=== PATIENT | female | born 1990 | race Caucasian/White ===

== ENCOUNTER 2020-07-10 13:47 | Emergency (ER) | payer MEDICAID, SELFPAY ==
--- NOTE | 2020-07-10 13:51 | XR_ITS ---
WS: [id number] EXAM: LEFT FOOT: 3 VIEWS DATE OF EXAMINATION: 07/10/2020, 1504 hours COMPARISON: None. HISTORY: 29 years old with foot and ankle injury. Complaining of pain. FINDINGS: Bone density is normal in appearance. No fracture, lytic or blastic process is seen. No soft tissue a bnormality noted. XR/XR foot LT min 3V* [id number] IMPRESSION: Negative.
[2020-07-10 14:04] VITALS: BP 119/82; PULSE 88; RESP 16; TEMP 37.2; O2SAT 97; BMI 37.5
--- NOTE | 2020-07-10 14:35 | XR_ITS ---
WS: [id number] EXAM: LEFT ANKLE: 3 VIEWS DATE OF EXAMINATION: 07/10/2020, 1503 hours COMPARISON: None. HISTORY: Patient is 29 years old with foot and ankle injury. Complaining of pain. FINDINGS: Bone density is normal in appearance. Ankle mortise is symmetrical. There appears to be a minute chip of bone off the inferior aspect of the fibula suggesting a small avulsion injury. Otherwise no fract ure is seen. No dislocation. No extensive soft tissue injury identified. XR/XR ankle LT min 3V* [id number] IMPRESSION: No large fracture seen. Suspected tiny bony avulsion off the inferior aspect of the fibula suggesting a ligamentous avulsion injury.
--- NOTE | 2020-07-10 14:36 | ED_ITS ---
HPI - Extremity Problem General: Chief complaint: Extremity Injury, Lower Stated complaint: left foot injury Time Seen by Provider: 07/10/20 14:28 Source: patient Mode of arrival: ambulatory Limitations: no limitations History of Present Illness: HPI Narrative: Sera is a 29-year-old female who comes in complaining of left foot and ankle pain. She was working with a horse when the horse ended up stepping down on her foot. She has abrasions noted to the top. She is she has pain diffusely throughout her foot and is unable to bear weight secondary to pain. Describes pain as severe. She denies any other injuries or complaints. She denies any numbness or weakness in her foot. Review of Systems General: Reports: 10 or more systems reviewed and unremarkable except in HPI and below PFSH ED PFSH: Social History (Updated 07/10/20 @ 14:09 by Elias Kidd RN) Alcohol intake: never Substance/Drug Use: never Female Reproductive History: Date of last menstrual period: 07/08/20 Physical Exam Const: COMMON NORMALS: no acute distress, patient oriented x3, no limitations, healthy appearing and well nourished GENERAL APPEARANCE: cooperative, well kempt and well developed HENMT: COMMON NORMALS: normocephalic, atraumatic, external ears normal, EAC's normal and Normal external nose present HEAD & SCALP: normal to inspection, normocephalic and atraumatic FACE & SINUS: normal facial exam and face symmetric NOSE: Normal external nose present and Normal nares present EXTERNAL EAR: Yes external ears normal EXTERNAL AUDITORY CANAL: EAC's normal MOUTH: Normal oral and palatal mucosa present, lip normal and tongue normal Eye: COMMON NORMALS: Equal, round and reactive pupils present and conjunctivae normal GENERAL EYE: appearance normal, both eyes and all related structures ALIGNMENT: Yes alignment normal PERIORBITAL: periorbital findings normal EYELID: eyelids normal CONJUNCTIVA: Yes conjunctivae normal SCLERA: sclerae normal PUPIL: Yes Equal, round and reactive pupils present Neck/C-Spine: COMMON NORMALS: full ROM, no lymphadenopathy, supple, no meningeal signs and no JVD GENERAL: Yes normal visual inspection and Yes trachea midline Chest: COMMONS NORMALS: normal inspection of the chest and normal palpation of entire chest wall Resp: COMMON NORMALS: normal respiratory effort, No retractions, No use of accessory muscles and clear to auscultation bilaterally EFFORT & INSPECTION: Yes able to speak in complete sentences and Yes symmetric chest movement AUSCULTATION: clear to auscultation bilaterally, no crackles, no rales, no rhonchi and no wheezes Cardio: COMMON NORMALS: no JVD, regular rate, regular rhythm, S1 normal heart sound present and S2 normal heart sound present RATE: regular rate RHYTHM: regular rhythm HEART SOUNDS: S1 normal heart sound present, S2 normal heart sound present, no click, no gallops, no murmurs, no rubs and abnormal split S2 GI: COMMON NORMALS: Soft to palpation and No hepatosplenomegaly present PALPATION: Yes Soft to palpation, No Tenderness to palpation present (GI), No Guarding due to palpation present (GI), No Rigid due to palpation, Yes No hepatosplenomegaly present, No Hernia present, No Palpable mass present and No Pulsatile mass present : COMMON NORMALS: Yes no CVA tenderness BLADDER/KIDNEY EXAM: Yes no CVA t enderness EXTERNAL FEMALE EXAM: No Hernia present Back/Pelvis: COMMON NORMALS: no CVA tenderness, thoracic and lumbar spine normal to inspection, no thoracic nor lumbar tenderness and thoraco-lumbar ROM normal Extremity: COMMON NORMALS: capillary refill normal, no joint enlargement, no clubbing, cyanosis or edema and no calf tenderness NARRATIVE EXTREMITY EXAM: Abrasion noted to the top of foot with tenderness to palpation. Tenderness to palpation of the foot and ankle. No gross deformity noted. Foot and toes are neurovascularly intact. Neuro: COMMON NORMALS: patient oriented x3, CN's II-XII intact bilaterally, moves all extremities, no focal motor deficits and no sensory deficits noted MENINGEAL SIGNS: Yes no meningeal signs SPEECH: speech normal Psych: COMMON NORMALS: mental status grossly normal, Normal thought process present, cooperative, normal affect, speech normal and activity/motor behavior normal APPEARANCE: Yes well kempt SPEECH: Yes normal speech THOUGHT PROCESS: Normal thought process present Skin: COMMON NORMALS: no rashes or lesions noted, turgor normal, no jaundice, no petechiae and no mottling GENERAL SKIN EXAM: no rashes or lesions noted and turgor normal Course Vital Signs: Vital signs: Vital Signs Temperature 98.9 F 07/10/20 14:04 Pulse Rate 84 07/10/20 14:41 Respiratory Rate 18 07/10/20 14:41 Blood Pressure 116/75 07/10/20 14:41 Pulse Oximetry 98 07/10/20 14:41 MDM - Extremity (Nontraumatic) MDM Narrative: Medical decision making narrative: Patient appears to have a small avulsion fracture present on her left ankle/fibula. I will go ahead and discharge her home to follow-up with Dr. Ryan. Place her on crutches make her nonweightbearing. She understands return if her symptoms worsen or change. Imaging Data^: Left Ankle: Attestation: I personally reviewed and interpreted this imaging study as follows: My impression: Possible avulsion fracture to the left fibula Left Foot: Attestation: I personally reviewed and interpreted this imaging study as follows: My impression: No acute fractures dislocations Discharge Plan Discharge Patient Disposition: Home Clinical Impression: Ankle fracture Qualifiers: Encounter type: initial encounter Fracture type: closed Laterality: left Qualified Code(s): S82.892A - Other fracture of left lower leg, initial encounter for closed fracture Condition: Stable Prescriptions: [place] 5-325 mg tablet 1 tab PO Q6H PRN (Reason: pain) 5 Days Qty: 16 RF: 0 Discharge Orders: Discharge Order (Routine); Ordered 07/10/20 Ordered By: Marta Suresh Referrals: Jerry Ryan MD [Physician] - 1-3 days Wilburn,JOSE L Rudolph [Primary Care Provider] - Discharge Diet: Usual diet Discharge Activity: Limit activity as instructed and Use walker/crutches as instructed Patient Instructions: Ankle Fracture (ED) Activity Restrictions/Additional Instructions: Please return to the ER immediately for any of the signs or symptoms listed on your discharge instruction sheets, worsening/changing of your symptoms, you are not getting better as quickly as expected, or for ANY other cause or concerns. Use your splint and use your crutches at all times until seen and instructed further by Dr. Ryan. Please return to the ER immediately for increased pain, foot numbness or weakness, or for any other cause for concern. Coding Level of Care Code ED Plastic And Reconstructive Surgeon for [facility] Exam Comprehensive
[2020-07-10 14:41] VITALS: BP 116/75; PULSE 84; RESP 18; O2SAT 98
[2020-07-10] MEDS: HYDROcodone-acetaminophen 5-325 mg Tablet 1 TAB PO (15:36)
[2020-07-10 16:26] VITALS: BP 140/91; PULSE 80; RESP 20; TEMP 37.2; O2SAT 98
[2020-07-10 16:28] VITALS: BP 140/91; PULSE 80; RESP 18; TEMP 36.6; O2SAT 98
== END 2020-07-10 16:30 | disposition home or self-care (01) ==
PROVIDERS: Emergency Provider Emergency Medicine; PCP Nurse Practitioner Family
DX: S82.892A Other fracture of left lower leg, initial encounter for closed fracture (principal); W55.19XA Other contact with horse, initial encounter
CPT/HCPCS: 12345; 29515; 73610; 73630; 99281; 99283; E0114

== ENCOUNTER → 2020-07-13 10:33 | Outpatient (BNVA) | payer MEDICAID, SELFPAY | PROVIDERS: PCP Nurse Practitioner Family; Referring Provider Emergency Medicine; Visit Provider Podiatrist Foot & Ankle Surgery | DX: M25.572 Pain in left ankle and joints of left foot (principal) | CPT/HCPCS: 73610; 73620 ==

== ENCOUNTER 2020-07-13 11:48 | Outpatient (CLI) | payer MEDICAID, SELFPAY | END 2020-07-13 11:49 | disposition home or self-care (01) | LOC: SPT 11:49 | PROVIDERS: PCP Nurse Practitioner Family; Visit Provider Podiatrist Foot & Ankle Surgery | DX: Z46.89 Encounter for fitting and adjustment of other specified devices (principal); S82.832D Other fracture of upper and lower end of left fibula, subsequent encounter for closed fracture with routine healing; S90.32XD Contusion of left foot, subsequent encounter; X58.XXXD Exposure to other specified factors, subsequent encounter | CPT/HCPCS: 97760; L4361 ==

== ENCOUNTER 2025-06-12 17:29 | Emergency (ER) | payer OTHER, SELFPAY ==
[2025-06-12 17:38] VITALS: BP 140/89; PULSE 70; RESP 16; TEMP 36.7; O2SAT 100
--- NOTE | 2025-06-12 17:42 | W.ED.LOWEXIN ---
HPI - Extremity Injury (Lower) General: Chief Complaint: Extremity Injury, Lower Stated Complaint: LT leg painful Time Seen by Provider: 06/12/25 17:42 Source: patient Mode of arrival: ambulatory Limitations: no limitations History of Present Illness: Patient is a ED today for an evaluation of left ankle pain. Patient states 2 weeks ago she had a horse rollover onto her lower extremity. She states she has been ambulatory without assistance since the injury. Recently she began noticing a small amount of edema and bruising to the medial aspect of her left ankle and decided she should get it checked out. She was seen approximately 2 weeks ago in [place] and reportedly had negative x-ray films performed. She denies numbness, tingling, loss of sensation to the leg. No color or temperature changes. MD complaint: ankle injury Onset (ago): day(s) Injury: Left: ankle Place: home Severity: moderate Relieving factors: immobilization Exacerbating factors: weight bearing, movement and palpation Context: direct blow Associated symptoms: Reports no associated symptoms Other symptoms: none Related Data Previous Rx's ?Medication ?Instructions ?Recorded venlafaxine 37.5 mg 37.5 mg PO QAM 30 days #30 caps 07/25/23 capsule,extended release 24 hr Allergies Allergy/AdvReac Type Severity Reaction Status Date / Time iodine Allergy ALGY-Rash Verified 07/25/23 08:39 Review of Systems Card: Denies: chest pain Resp: Denies: dyspnea Musc: Reports: joint pain (L ankle) and joint swelling (medial L ankle); Denies: extremity pain, extremity swelling, joint redness, joint warmth or limited range of motion Neuro: Denies: numbness in extremities, weakness in extremities, sensory changes or difficulty walking [facility] ED PFSH: Medical History Afib SVT (supraventricular tachycardia) Tricuspid regurgitation Seizure disorder Chronic migraine Degenerative joint disease Spinal stenosis Surgical History Hx of section Family History Other CAD (coronary artery disease) Cancer Diabetes Hypertension Stroke Social History Smoking and tobacco/nicotine status: current every day tobacco/nicotine user smokeless tobacco Smokeless tobacco user: chewing tobacco Alcohol intake: never Substance/Drug Use: never Current occupational status: unemployed Physical Exam Const: COMMON NORMALS: no acute distress, no limitations, alert and well nourished Extremity: COMMON NORMALS: full ROM, capillary refill normal, no clubbing, cyanosis or edema, no calf tenderness and no pedal edema GENERAL: Yes normal exam except as noted LEFT LOWER EXTREMITY: Yes ankle joint (mild edema/tenderness medial L ankle just superior to med malleolus) Left ankle: Yes ROM (normal passive ROM) and Yes neurovascular exam (normal) Neuro: COMMON NORMALS: moves all extremities, no focal motor deficits, no sensory deficits noted and gait normal SENSORIUM/ORIENTATION: Yes alert Course Vital Signs: Vital signs: Vital Signs Temperature 98.0 F 06/12/25 17:38 Pulse Rate 70 06/12/25 17:38 Respiratory Rate 16 06/12/25 17:38 Blood Pressure 140/89 06/12/25 17:38 Pulse Oximetry 100 06/12/25 17:38 Oxygen Delivery Me thod Room Air 06/12/25 17:38 MDM - Extremity Injury (Lower) Medical Decision Making XR unremarkable. Recommend conservative therapy. Can follow up in 2 weeks for continued pain. Differential Diagnosis Likely ankle sprain and strain Medical Records I reviewed the patient's medical records. 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
--- NOTE | 2025-06-12 17:50 | XRR_ITS ---
PROCEDURE INFORMATION: Exam: XR Left Ankle Exam date and time: 06/12/2025 5:53 PM Age: 34 years old Clinical indication: Injury or trauma; Other: Horse rolled on her; Blunt trauma; Ankle; Left TECHNIQUE: Imaging protocol: Radiologic exam of the left ankle. Views: 3 or more views. COMPARISON: CR XR ankle LT min 3V* [id number] 07/13/2020 10:42 AM FINDINGS: Bones/joints: Normal. Soft tissues: Normal. XR/XR ankle LT min 3V* [id number] IMPRESSION: No acute findings.
== END 2025-06-12 18:32 | disposition home or self-care (01) ==
PROVIDERS: Emergency Provider Physician Assistant
DX: S99.912A Unspecified injury of left ankle, initial encounter (principal); F17.220 Nicotine dependence, chewing tobacco, uncomplicated; W55.12XA Struck by horse, initial encounter
CPT/HCPCS: 73610; 99283